=== PATIENT | female | born 1965 | race Caucasian/White ===

== ENCOUNTER → 2020-04-23 | Outpatient (CLI) | payer MEDICARE, OTHER ==
[~2020-04-23] MED LIST: CALCIUM500 MG PO; FLONASE ALLER15.8 ML; HYDROCODON-ACE1 EAC6 PO; LEVOTHYROXINE137 MC1 PO; LISINOPRIL10 MG PO; MOBIC15 MG PO; PROTONIX40 MG PO; PROZAC40 MG PO; SINGULAIR10 MG PO; TRAZODONE HCL150 MG PO; VITAMIN D21250 MCG PO; XYZAL5 MG PO
[2020-04-23 10:26] LABS: HEMOGLOBIN 12.1 gm/dl (12.3-15.3); RED BLOOD COUNT 4.19 M/UL (4.00-5.10); WHITE BLOOD COUNT 5.9 K/UL (4.5-11.0)
[2020-04-23 10:35] LABS: BUN/CREATININE RATIO 25 (0-10)
== END ==
LOC: OPSV2 09:00 → EDSTATUS 09:00 → OPSV2 09:40
PROVIDERS: Orthopaedic Surgery
DX: Z01.818 Encounter for other preprocedural examination (principal)
CPT/HCPCS: 36415; 80048; 85025; 87081; 93005

== ENCOUNTER 2020-05-01 09:42 | Day surgery (SDC) | payer MEDICARE, OTHER ==
[~2020-05-01] VITALS: Ht 165.1 cm; Wt 95.7 kg
[~2020-05-01 09:42] MED LIST changes: -HYDROCODON-ACE1 EAC6 PO
[2020-05-01 10:32] LABS: BUN/CREATININE RATIO 17 (0-10)
[2020-05-01] MEDS ORDERED: HYDROCODON-ACE1 EAC6 PO (13:24)
[2020-05-02 03:55] LABS: HEMOGLOBIN 10.6 gm/dl (12.3-15.3); RED BLOOD COUNT 3.69 M/UL (4.00-5.10); WHITE BLOOD COUNT 13.7 K/UL (4.5-11.0)
[2020-05-02 04:04] LABS: BUN/CREATININE RATIO 16 (0-10)
--- NOTE | 2020-05-02 14:25 | NUR ---
DISCHARGE INSTRUCTIONS GIVEN. PATIENT VERBALIZED UNDERSTANDING.
== END 2020-05-02 14:42 | disposition home or self-care (01) ==
LOC: OR 09:42 → M/S 15:53 → OR 05-02 14:42
PROVIDERS: Orthopaedic Surgery
DX: M12.811 Other specific arthropathies, not elsewhere classified, right shoulder (principal); M75.101 Unspecified rotator cuff tear or rupture of right shoulder, not specified as traumatic; I10 Essential (primary) hypertension; E07.9 Disorder of thyroid, unspecified; F32.9 Major depressive disorder, single episode, unspecified; K21.9 Gastro-esophageal reflux disease without esophagitis; Z98.84 Bariatric surgery status; Z87.891 Personal history of nicotine dependence; Z88.1 Allergy status to other antibiotic agents; Z79.899 Other long term (current) drug therapy
CPT/HCPCS: 36415; 73020; 80048; 85027; 97161; 97165; C1713; C1776; J0171; J0690; J1100; J2001; J2405; J2704; J2710; J2795; J7120